=== PATIENT | female | born 1990 | race Asian ===

== ENCOUNTER 2018-06-18 09:34 | Emergency (ER) | payer OTHER ==
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
[2018-06-18 11:23] VITALS: BP 122/56
== END 2018-06-18 11:22 | disposition home or self-care (01) ==
LOC: ED 09:34
DX: T20.16XA Burn of first degree of forehead and cheek, initial encounter (principal); X12.XXXA Contact with other hot fluids, initial encounter; Y92.9 Unspecified place or not applicable
CPT/HCPCS: 99281

== ENCOUNTER 2019-02-06 20:22 | Emergency (ER) | payer OTHER ==
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
[2019-02-06 22:45] VITALS: BP 127/79
== END 2019-02-06 22:44 | disposition home or self-care (01) ==
LOC: ED 20:22
DX: S09.90XA Unspecified injury of head, initial encounter (principal); S00.31XA Abrasion of nose, initial encounter; W21.02XA Struck by soccer ball, initial encounter; Y92.9 Unspecified place or not applicable; Z88.1 Allergy status to other antibiotic agents; Z91.018 Allergy to other foods
CPT/HCPCS: 99281

== ENCOUNTER 2019-09-26 01:50 | Emergency (ER) | payer OTHER ==
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
[2019-09-26] MEDS ORDERED: Fluorescein Sodium TOPICAL* 1 MG TEST STRIP OPHTHALMIC ONE (02:19)
[2019-09-26] MEDS ORDERED: Tetracaine 0.5% OPTH.SOL 4 ML* 1 DROP BTL RIGHT EYE ONE (02:19)
[2019-09-26 03:47] VITALS: BP 123/82
== END 2019-09-26 03:46 | disposition home or self-care (01) ==
LOC: ED 01:50
DX: H53.8 Other visual disturbances (principal); Z77.098 Contact with and (suspected) exposure to other hazardous, chiefly nonmedicinal, chemicals; Z88.8 Allergy status to other drugs, medicaments and biological substances; H57.11 Ocular pain, right eye
CPT/HCPCS: 99282; A9270-GY